=== PATIENT | male | born 1945 | race Caucasian/White ===

== ENCOUNTER 2021-10-20 12:19 | Inpatient (IN) | payer OTHER, MEDICARE ==
[~2021-10-20] VITALS: Ht 177.8 cm; Wt 117.0 kg
[2021-10-20 12:58] LABS: PCO2 Arterial 62.7 mmHg (35-45); pH Blood Arterial 7.34 (7.35-7.45)
[2021-10-20 13:17] LABS: BASOPHILS ABSOLUTE AUTO 0.03 K/mm3 (0.00-0.23); BASOPHILS PERCENT AUTO 0 % (0-2); EOSINOPHILS ABSOLUTE AUTO 0.04 K/mm3 (0.00-0.68); EOSINOPHILS PERCENT AUTO 0 % (0-6); Hematocrit 51.2 % (37.0-53.0); Hemoglobin 16.6 g/dL (13.5-17.5); IMMATURE GRAN ABSOLUTE AUTO 0.05 K/mm3 (0.00-0.10); IMMATURE GRAN PERCENT AUTO 1 % (0-1); LYMPHOCYTES ABSOLUTE AUTO 0.95 K/mm3 (0.84-5.20); LYMPHOCYTES PERCENT AUTO 9 % (21-46); MONOCYTES PERCENT AUTO 5 % (4-13); Mean Corpuscular HGB 31.4 pg (26.0-34.0); Mean Corpuscular HGB Conc 32.4 g/dL (31.5-36.5); Mean Corpuscular Volume 97 fL (80-100); Mean Platelet Volume 10.4 fL (9.1-12.4); NEUTROPHILS ABSOLUTE AUTO 9.06 K/mm3 (1.96-9.15); NEUTROPHILS PERCENT AUTO 85 % (41-73); Platelet Count 171 K/mm3 (150-400); RDW Coefficient Variation 14.9 % (11.7-14.2); RDW Standard Deviation 53.7 fL (35.1-46.3); Red Blood Cell Count 5.29 M/mm3 (4.30-5.90); White Blood Cell Count 10.63 K/mm3 (4.00-11.30)
[2021-10-20 13:39] LABS: Alanine Aminotransfer (ALT/SGP 18 U/L (12-78); Albumin, Blood 4.2 g/dL (3.4-5.0); Alk Phos 96 U/L (50-136); Anion Gap 4 mmol/L (6-16); Aspartate Aminotrans (AST/SGOT 29 U/L (12-37); Bilirubin, Total 0.8 mg/dL (0.1-1.0); Blood Urea Nitrogen 20 mg/dL (8-24); Bun/Creatinine Ratio 26.4 (12.0-20.0); CO2, Blood 33 mmol/L (21-32); Chloride, Blood 100 mmol/L (98-108); Creatinine, Blood 0.76 mg/dL (0.60-1.20); Globulin, Blood 4.1 g/dL (2.2-4.0); Glomerular Filtration Rate >60 (60-); Glucose, Blood 108 mg/dL (70-99); Potassium, Blood 4.4 mmol/L (3.5-5.5); Sodium, Blood 137 mmol/L (136-145); Total Protein, Blood 8.3 g/dL (6.4-8.2)
[2021-10-20 13:41] LABS: Ethanol (Alcohol), Blood, Med <3 mg/dL
[2021-10-20] MEDS ORDERED: METF500 PO (14:09)
[2021-10-20 14:11] LABS: Source, Urine Clean Catch
[2021-10-20] MEDS ORDERED: FURO40 PO (14:11)
[2021-10-20] MEDS ORDERED: SPIRIVA RESPIMAT4 G3 INH (14:11)
[2021-10-20] MEDS ORDERED: FLUT1DIS5 INH (14:12)
[2021-10-20] MEDS ORDERED: LOSA25 PO (14:13)
[2021-10-20] MEDS ORDERED: ROPINIROLE HCL PO (14:13)
[2021-10-20] MEDS ORDERED: LEVSOD150 PO (14:14)
[2021-10-20 14:15] LABS: Appearance, Urine Clear (Clear); Bilirubin, Urine Neg (Neg); Blood, Urine 2+ (Neg); Color, Urine Amber (P-Yellow); Glucose Qualitative, Urine Neg (Neg); Ketones, Urine Neg (Neg); Leukocyte Esterase, Urine 1+ (Neg); Nitrite, Urine Neg (Neg); Protein, Urine 2+ (Neg); Specific Gravity, Urine 1.025 (1.003-1.022); Urobilinogen, Urine 2+ (Normal)
[2021-10-20] MEDS ORDERED: SERT100 PO (14:15)
[2021-10-20] MEDS ORDERED: Crestor40 MG PO (14:16)
[2021-10-20 14:25] LABS: Bacteria Few /hpf; Squamous Epithelial Cells Few /hpf (Few)
[2021-10-20 14:26] LABS: Amorphous Light (0-Heavy); Amorphous Casts 0-2 /lpf (0); Calcium Oxalate Crystals Few /hpf
[2021-10-20 14:27] LABS: Hyaline Casts Rare /lpf (0-2)
[2021-10-20 14:28] LABS: U Amphetamine Screen Not Detected; U Barbituate Screen Not Detected; U Benzodiazapine Screen Not Detected; U Buprenorphine Screen Not Detected; U Cannabinoids Screen Not Detected; U Cocaine Screen Not Detected; U Methadone Screen Not Detected; U Methamphetamine Screen Not Detected; U Opiates Screen Not Detected; U Oxycodone Screen Not Detected; U Phencyclidine Screen Not Detected; U Propoxyphene Screen Not Detected
--- NOTE | 2021-10-20 23:06 | NUR ---
RESPIRATORY HAS PLACED THE PT ON CPAP FOR THE NIGHT BUT THE PT REFUSES TO USE IT BECAUSE HE STATES IT DOESN'T HELP HIM, HE WOULD PREFER WEARING JUST THE NASAL CANNULA OVERNIGHT. THIS RN PLACED THE NC BACK ON THE PATIENT AT 3L, PT O2 SAT IN THE LOW 90'S.
[2021-10-21 04:48] LABS: BASOPHILS ABSOLUTE AUTO 0.01 K/mm3 (0.00-0.23); BASOPHILS PERCENT AUTO 0 % (0-2); EOSINOPHILS PERCENT AUTO 0 % (0-6); Hematocrit 51.5 % (37.0-53.0); Hemoglobin 16.2 g/dL (13.5-17.5); IMMATURE GRAN ABSOLUTE AUTO 0.03 K/mm3 (0.00-0.10); IMMATURE GRAN PERCENT AUTO 0 % (0-1); LYMPHOCYTES PERCENT AUTO 6 % (21-46); MONOCYTES PERCENT AUTO 1 % (4-13); Mean Corpuscular HGB 31.1 pg (26.0-34.0); Mean Corpuscular HGB Conc 31.5 g/dL (31.5-36.5); Mean Corpuscular Volume 99 fL (80-100); Mean Platelet Volume 10.1 fL (9.1-12.4); NEUTROPHILS ABSOLUTE AUTO 10.35 K/mm3 (1.96-9.15); NEUTROPHILS PERCENT AUTO 92 % (41-73); Platelet Count 157 K/mm3 (150-400); RDW Coefficient Variation 14.8 % (11.7-14.2); RDW Standard Deviation 53.8 fL (35.1-46.3); Red Blood Cell Count 5.21 M/mm3 (4.30-5.90); White Blood Cell Count 11.19 K/mm3 (4.00-11.30)
[2021-10-21 05:01] LABS: Albumin, Blood 3.8 g/dL (3.4-5.0); Anion Gap 5 mmol/L (6-16); Blood Urea Nitrogen 20 mg/dL (8-24); Bun/Creatinine Ratio 25.8 (12.0-20.0); CO2, Blood 38 mmol/L (21-32); Calcium, Blood 8.7 mg/dL (8.5-10.1); Chloride, Blood 95 mmol/L (98-108); Creatinine, Blood 0.77 mg/dL (0.60-1.20); Glomerular Filtration Rate >60 (60-); Glucose, Blood 124 mg/dL (70-99); Magnesium, Blood 2.3 mg/dL (1.6-2.4); Phosphorus, Blood 4.7 mg/dL (2.5-4.9); Potassium, Blood 4.4 mmol/L (3.5-5.5); Sodium, Blood 138 mmol/L (136-145)
--- NOTE | 2021-10-21 05:17 | NUR ---
PT DID WELL OVERNIGHT ON THE NASAL CANNULA, PT DID NOT COMPLAIN OF ANY FURTHER SOB, PAIN, N/V. PT AWAKE THIS MORNING WATCHING TV. PT SATING >90. CALL LIGHT, PERSONAL BELONGINGS, AND URINAL ALL WITHIN PT REACH.
--- NOTE | 2021-10-21 17:29 | NUR ---
SHIFT SUMMARY THE PATIENT IS ALERT AND ORIENTED PLEASANT AND COOPERATIVE WITH CARE. THE PATIENT IS ABLE TO MAKE NEEDS KNOWN. THE PATIENT IS CURRENTLY ON 2LPM OF O2 VIA NASAL CANNULA. SATTING ABOVE 90% PATIENT HAS BEEN UP IN RECLINER FOR MEALS. PHYSICAL THERAPY WAS BY TO WORK WITH THE PATIENT. THE PATIENT TOLERATED IT WELL. NO INSULIN COVERAGE NEEDED. NO ACUTE CHANGES THIS SHIFT. VSS. THIS NURSE WILL CONTINUE TO CARE FOR THE PATIENT UNTIL SHIFT REPORT IS GIVEN TO ONCOMING NURSE.
[2021-10-21] MEDS ORDERED: VALA500 PO (19:30)
[2021-10-21] MEDS ORDERED: Mucus Relief400 MG PO (19:33)
[2021-10-21] MEDS ORDERED: TAMS.4ER PO (19:34)
[2021-10-21] MEDS ORDERED: ALBU90OI INH (19:34)
[2021-10-21] MEDS ORDERED: MYRBETRIQ25 MG PO (19:35)
[2021-10-21] MEDS ORDERED: LIDO700A20 TOP (19:36)
[2021-10-21] MEDS ORDERED: Carvedilol12.5 MG PO (19:37)
[2021-10-21] MEDS ORDERED: CARV25 PO (19:37)
[2021-10-22 04:53] LABS: BASOPHILS ABSOLUTE AUTO 0.03 K/mm3 (0.00-0.23); BASOPHILS PERCENT AUTO 0 % (0-2); EOSINOPHILS ABSOLUTE AUTO 0.01 K/mm3 (0.00-0.68); EOSINOPHILS PERCENT AUTO 0 % (0-6); Hematocrit 51.4 % (37.0-53.0); Hemoglobin 16.1 g/dL (13.5-17.5); IMMATURE GRAN ABSOLUTE AUTO 0.06 K/mm3 (0.00-0.10); IMMATURE GRAN PERCENT AUTO 1 % (0-1); LYMPHOCYTES ABSOLUTE AUTO 1.49 K/mm3 (0.84-5.20); LYMPHOCYTES PERCENT AUTO 13 % (21-46); MONOCYTES ABSOLUTE AUTO 0.72 K/mm3 (0.16-1.47); MONOCYTES PERCENT AUTO 6 % (4-13); Mean Corpuscular HGB Conc 31.3 g/dL (31.5-36.5); Mean Corpuscular Volume 99 fL (80-100); Mean Platelet Volume 10.3 fL (9.1-12.4); NEUTROPHILS ABSOLUTE AUTO 9.26 K/mm3 (1.96-9.15); NEUTROPHILS PERCENT AUTO 80 % (41-73); Platelet Count 149 K/mm3 (150-400); RDW Coefficient Variation 14.6 % (11.7-14.2); Red Blood Cell Count 5.19 M/mm3 (4.30-5.90); White Blood Cell Count 11.57 K/mm3 (4.00-11.30)
[2021-10-22 05:22] LABS: Albumin, Blood 3.6 g/dL (3.4-5.0); Anion Gap 7 mmol/L (6-16); Blood Urea Nitrogen 28 mg/dL (8-24); Bun/Creatinine Ratio 29.7 (12.0-20.0); CO2, Blood 34 mmol/L (21-32); Calcium, Blood 9.1 mg/dL (8.5-10.1); Chloride, Blood 97 mmol/L (98-108); Creatinine, Blood 0.94 mg/dL (0.60-1.20); Glomerular Filtration Rate >60 (60-); Glucose, Blood 108 mg/dL (70-99); Phosphorus, Blood 3.2 mg/dL (2.5-4.9); Potassium, Blood 3.8 mmol/L (3.5-5.5); Sodium, Blood 138 mmol/L (136-145)
--- NOTE | 2021-10-22 11:10 | NUR ---
Patient choice for home health referral: [facility] Home Health Liaison Rachel Ingram contacted by email/notified of discharge date: 10/22/[address] Peters.
[2021-10-22] MEDS ORDERED: DECADRON4 M1 PO (11:53)
[2021-10-22] MEDS ORDERED: LOSA50 PO (11:54)
[2021-10-22] MEDS ORDERED: IPRAT-ALBUT 0.5-3 ML INH (11:54)
--- NOTE | 2021-10-22 14:17 | NUR ---
PT DISCHARGED FROM THE UNIT. IV REMOVED. DISCHARGE INSTRUCTIONS REVIEWED. MEDICATIONS FAXED. TO [facility]
--- NOTE | 2021-10-23 07:51 | NUR ---
Per Dr. Peters discharge appropriate. Patient does not oppose discharge. Patient discharged home to residence. [facility] Home Health Liaison contacted to initiate Home Health services per discharge orders. Date of discharge: 10/22/2021 Date of admission: 10/21/2021 Provisional diagnosis at time of admission: COVID19 Final Diagnosis at time of discharge: COVID19 Transportation provided by: Family Location: [address] [place] [address] [employer] Ordered: None; patient uses Oxygen daily at night; [employer] provides supply Follow-ups needed: [facility] will contact patient to schedule hospital follow-up visit. Reinforced need to attend follow-up visit with telehealth option if needed (patient is COVID positive). Confirmed numbers: Patient [phone] Provider/PCP: Dr. Colt Taylor When: WITHIN 1 WEEK Specialty: N/A Comment: Explained to patient to contact PCP if any questions regarding medication management, social service needs, and if condition worsens go to Urgent Care/ER. No barriers to discharge. Patient has a strong support network.
--- NOTE | 2021-10-23 10:33 | NUR ---
Received referral from [facility] [employer] (Maddie Manzano) on 10/22/2021. Patient discharged 10/22/2021 with orders for home health and elected [facility]. Contacted patient at number provided on demographic sheet today- 10/23/2021 to further discuss the above. Patient is agreeable to the above. Discussed homebound status definition with patient. Patient verbalized understanding. Discussed what home health is vs what it is not (in home caregivers/housekeeping). Patient verbalized understanding. Discussed the next steps in the process of an initial assessment to determine frequency of visits. Again patient verbalized understanding. Offered a chance for patient to ask questions regarding the above of which there were none. Gathered all supporting documentation for referral (face sheet, face to face, med list, H&P, discharge summary, and most recent PT assessment) and sent to [facility] for review. No further interventions required. Rachel Ingram Referral Liaison
== END 2021-10-22 12:33 | disposition home health service (06) | DRG 177 ==
LOC: ER 12:19 → MEDS 12:20 → ENPENDDIS 10-22 11:42 → MEDS 10-22 12:33
PROVIDERS: Physician Assistant; ADMIT Family Medicine
PROC: 5A09357 Assistance with Respiratory Ventilation, Less than 24 Consecutive Hours, Continuous Positive Airway Pressure (ICD-10-PCS; principal; 2021-10-21)
PROC: 8E0ZXY6 Isolation (ICD-10-PCS; 2021-10-21)
PROC: 3E0DX3Z Introduction of Anti-inflammatory into Mouth and Pharynx, External Approach (ICD-10-PCS; 2021-10-21)
DX: U07.1 COVID-19 (principal); J96.21 Acute and chronic respiratory failure with hypoxia; N39.0 Urinary tract infection, site not specified; J44.9 Chronic obstructive pulmonary disease, unspecified; G47.33 Obstructive sleep apnea (adult) (pediatric); N40.0 Benign prostatic hyperplasia without lower urinary tract symptoms; B02.9 Zoster without complications; F32.A Depression, unspecified; F41.9 Anxiety disorder, unspecified; E66.9 Obesity, unspecified; Z68.38 Body mass index [BMI] 38.0-38.9, adult; E11.9 Type 2 diabetes mellitus without complications; Z79.84 Long term (current) use of oral hypoglycemic drugs; Z79.899 Other long term (current) drug therapy; Z88.2 Allergy status to sulfonamides; Z87.891 Personal history of nicotine dependence; Z28.21 Immunization not carried out because of patient refusal
CPT/HCPCS: 36415; 36600; 70450; 71045; 80053; 80069; 81001; 82803; 82947; 83735; 84145; 84484; 85025; 87086; 93005; 93010; 93306; 94660; 94762; 96372; 96376; 97116; 97161; 97165; 97535; 99285-25; A9270; G0378; G0480; J0696; J1650

== ENCOUNTER 2021-11-10 00:07 | Inpatient (IN) | payer OTHER ==
[~2021-11-10] VITALS: Ht 185.4 cm; Wt 114.4 kg
[~2021-11-10 00:07] MED LIST: ALBU90OI INH; CARV25 PO; Carvedilol12.5 MG PO; Crestor40 MG PO; DECADRON4 M1 PO; FLUT1DIS5 INH; FURO40 PO; IPRAT-ALBUT 0.5-3 ML INH; LEVSOD150 PO; LIDO700A20 TOP; LOSA25 PO; LOSA50 PO; METF500 PO; MYRBETRIQ25 MG PO; Mucus Relief400 MG PO; ROPINIROLE HCL PO; SERT100 PO; SPIRIVA RESPIMAT4 G3 INH; TAMS.4ER PO; VALA500 PO
[2021-11-10 00:35] LABS: Calcium, Ionized (POC) 1.12 mmol/L (1.10-1.46); Chloride (POC) 91 mmol/L (98-108); Glucose (ISTAT POC) 119 mg/dL (70-99); Potassium (POC) 4.5 mmol/L (3.5-5.5); Sodium (POC) 138 mmol/L (135-148); Total CO2 (POC) 40 mmol/L (21-32)
[2021-11-10 00:38] LABS: Hematocrit 46.4 % (37.0-53.0); Hemoglobin 14.3 g/dL (13.5-17.5); Mean Corpuscular HGB 31.7 pg (26.0-34.0); Mean Corpuscular HGB Conc 30.8 g/dL (31.5-36.5); Mean Corpuscular Volume 103 fL (80-100); Mean Platelet Volume 10.6 fL (9.1-12.4); Platelet Count 99 K/mm3 (150-400); RDW Coefficient Variation 14.3 % (11.7-14.2); RDW Standard Deviation 54.9 fL (35.1-46.3); Red Blood Cell Count 4.51 M/mm3 (4.30-5.90); White Blood Cell Count 27.79 K/mm3 (4.00-11.30)
[2021-11-10 00:39] LABS: PCO2 Arterial 76.9 mmHg (35-45); PO2 Arterial 305 mmHg (80-100); pH Blood Arterial 7.29 (7.35-7.45)
[2021-11-10 00:48] LABS: Alanine Aminotransfer (ALT/SGP 11 U/L (12-78); Albumin, Blood 2.6 g/dL (3.4-5.0); Albumin/Globulin Ratio 0.6 (0.8-1.8); Alk Phos 71 U/L (50-136); Anion Gap 3 mmol/L (6-16); Aspartate Aminotrans (AST/SGOT 11 U/L (12-37); Bilirubin, Total 0.9 mg/dL (0.1-1.0); Blood Urea Nitrogen 35 mg/dL (8-24); Bun/Creatinine Ratio 16.3 (12.0-20.0); CO2, Blood 39 mmol/L (21-32); Calcium, Blood 8.6 mg/dL (8.5-10.1); Chloride, Blood 97 mmol/L (98-108); Creatinine, Blood 2.15 mg/dL (0.60-1.20); Ethanol (Alcohol), Blood, Med <3 mg/dL; Glomerular Filtration Rate 30 (60-); Glucose, Blood 121 mg/dL (70-99); Potassium, Blood 4.5 mmol/L (3.5-5.5); Sodium, Blood 139 mmol/L (136-145); Total Protein, Blood 6.6 g/dL (6.4-8.2)
[2021-11-10 01:00] LABS: BAND PERCENT MAN 14 % (0-8); BASOPHILS PERCENT MAN 0 % (0-2); EOSINOPHILS PERCENT MAN 0 % (0-6); LYMPHOCYTES ABSOLUTE MAN 2.22 K/mm3 (0.84-5.20); LYMPHOCYTES PERCENT MAN 8 % (21-46); METAMYELOCYTE ABSOLUTE MAN 0.27 K/mm3 (0.00-0.00); METAMYELOCYTE PERCENT MAN 1 % (0-0); MONOCYTES ABSOLUTE MAN 1.66 K/mm3 (0.16-1.47); MONOCYTES PERCENT MAN 6 % (4-13); NEUTROPHILS ABSOLUTE MAN 23.62 K/mm3 (1.96-9.15); SEG NEUTROPHILS PERCENT MAN 71 % (41-73); TOTAL CELLS COUNTED 100
[2021-11-10 01:12] LABS: U Amphetamine Screen Not Detected; U Barbituate Screen Not Detected; U Benzodiazapine Screen Not Detected; U Buprenorphine Screen Not Detected; U Cannabinoids Screen Not Detected; U Cocaine Screen Not Detected; U Methadone Screen Not Detected; U Methamphetamine Screen Not Detected; U Opiates Screen Not Detected; U Oxycodone Screen Not Detected; U Phencyclidine Screen Not Detected; U Propoxyphene Screen Not Detected
[2021-11-10 01:33] LABS: Influenza A, PCR NEGATIVE (NEGATIVE); Influenza B, PCR NEGATIVE (NEGATIVE); Resp Syncytial Virus, PCR NEGATIVE (NEGATIVE)
[2021-11-10 01:52] LABS: SARS-Cov-2 (COVID-19) PCR, MMC POSITIVE (NEGATIVE)
[2021-11-10 03:18] LABS: Hemoglobin 13.6 g/dL (13.5-17.5); Mean Corpuscular HGB 31.9 pg (26.0-34.0); Mean Corpuscular HGB Conc 31.6 g/dL (31.5-36.5); Mean Corpuscular Volume 101 fL (80-100); Mean Platelet Volume 10.7 fL (9.1-12.4); Platelet Count 92 K/mm3 (150-400); RDW Coefficient Variation 14.4 % (11.7-14.2); RDW Standard Deviation 54.2 fL (35.1-46.3); Red Blood Cell Count 4.27 M/mm3 (4.30-5.90); White Blood Cell Count 22.58 K/mm3 (4.00-11.30)
[2021-11-10 03:30] LABS: Source, Urine Foley catheter
[2021-11-10 03:34] LABS: Blood, Urine 4+ (Neg); Glucose Qualitative, Urine Neg (Neg); Ketones, Urine 1+ (Neg); Leukocyte Esterase, Urine 3+ (Neg); Nitrite, Urine Pos (Neg); Protein, Urine 3+ (Neg); Urobilinogen, Urine 2+ (Normal)
[2021-11-10 03:35] LABS: Albumin, Blood 2.3 g/dL (3.4-5.0); Albumin/Globulin Ratio 0.6 (0.8-1.8); Bilirubin, Total 1.1 mg/dL (0.1-1.0); Bun/Creatinine Ratio 20.9 (12.0-20.0); Calcium, Blood 8.2 mg/dL (8.5-10.1); Creatinine, Blood 1.77 mg/dL (0.60-1.20); Globulin, Blood 3.7 g/dL (2.2-4.0); Potassium, Blood 3.9 mmol/L (3.5-5.5)
[2021-11-10 03:41] LABS: Appearance, Urine Hazy (Clear); Bilirubin, Urine 1+ (Neg); Color, Urine Amber (P-Yellow)
[2021-11-10 03:43] LABS: Amorphous Light (0-Heavy); Bacteria Mod /hpf; Red Blood Cells, Urine Rare /hpf (0-2); Squamous Epithelial Cells Few /hpf (Few)
--- NOTE | 2021-11-10 04:27 | NUR ---
ASSUMED PT CARE/END OF SHIFT SUMMARY PT ARRIVED FROM ED AT 0200. INTUBATED AND SEDATED. VENT SETTINGS AC/PC: 22/5; FIO2 45%, BACK UP RATE OF 18. PT SEDATED WITH VERSED THAT WAS TURNED OFF AND SWITCHED TO PROPOFOL, WHICH WAS STARTED AT 20MCG/KG/MIN. PT ABLE TO OPEN EYES, FOLLOW COMMANDS, AND NODS HEAD YES/NO TO QUESTIONS. MOVES ALL EXTREMITIES PURPOSEFULLY. PROPOFOL INCREASED TO 35 MCG/KG/MIN FOR COMFORT. LEVOPHED INITIATED AT 2MCG/MIN AND TITRATED ACCORDINGLY; SEE FLOWSHEET. NS AT 150MLS/HR. CENTRAL LINE TO RIGHT IJ; DRESSING CHANGED D/T PT'T COPIOUS ORAL SECRETIONS THAT LIFTED THE DRESSING. OG TUBE TO LIS WITH YELLOW/GREEN BILE NOTED TO CANISTER. TEMP WHITESIDE CATHETER IS PATENT AND DRAINING DARK, LISSETH COLORED URINE TO GRAVITY. SEE SHIFT SUMMARY FOR FURTHER DETAILS. WILL CONTINUE TO MONTIOR UNTIL REPORT IS HANDED OFF TO ONCOMING RN.
[2021-11-10 04:29] LABS: Cholesterol 73 mg/dL (50-200); Triglycerides 96 mg/dL (30-160)
[2021-11-10 05:01] LABS: BAND PERCENT MAN 15 % (0-8); BASOPHILS PERCENT MAN 0 % (0-2); EOSINOPHILS ABSOLUTE MAN 0.22 K/mm3 (0.00-0.68); EOSINOPHILS PERCENT MAN 1 % (0-6); LYMPHOCYTES ABSOLUTE MAN 1.12 K/mm3 (0.84-5.20); LYMPHOCYTES PERCENT MAN 5 % (21-46); MONOCYTES PERCENT MAN 4 % (4-13); NEUTROPHILS ABSOLUTE MAN 20.32 K/mm3 (1.96-9.15); SEG NEUTROPHILS PERCENT MAN 75 % (41-73); TOTAL CELLS COUNTED 100
[2021-11-10 05:58] LABS: PCO2 Arterial 42.1 mmHg (35-45); PO2 Arterial 58.7 mmHg (80-100)
--- NOTE | 2021-11-10 07:35 | NUR ---
RT changed vent settings to AC/VC 18/480/45/5 and sats 97%. Tolerated am meds.
--- NOTE | 2021-11-10 09:23 | NUR ---
No significant changes since last note. Vent and gtt seetings remain unchanged. Spouse called and gave her updates. Patient resting quetly.
--- NOTE | 2021-11-10 11:44 | NUR ---
Dr Nova has seen patient and no new orders. Vent setting changes AC/VC 16 480/45/5 and sats 95%. Have weaned Levophed to standby and systolics 120's. ECHO has been by and is done. Repositioned and oral care.
--- NOTE | 2021-11-10 13:30 | NUR ---
ASSUMED PT CARE. PT REMAINS INTUBATED AND SEDATED ON PROPOFOL @ 35 MCG/KG/MIN. PT RESPONDS TO NOXIOUS STIMULI BY COUGHING AND GRIMACING. NO SPONTANEOUS EYE OPENING OR MOVEMENT OF EXTREMITIES NOTED. ECG SHOWS SB TO SR WITH RATE 50-60'S. PT MAINTAINS MAP>65 WITH LEVOPHED ON STANDBY. LUNGS DIMINISHED THROUGH OUT. PT MAINTAINS SATS>90% ON VENT: AC/VC+ 16, 480,5, 45%. OGTF VPN INFUSING @ 20 CC/HR WITHOUT DIFFICULTY. WHITESIDE TO BSD WITH MODERATE AMOUNT OF DARK, YELLOW URINE OUTPUT. PT SKIN IS PALE, BUT WARM AND DRY. SCATTERED ECCHYMOTIC AREAS NOTED TO ARMS, BUT NO NOTED SKIN BREAKDOWN.PT SPOUSE AT BEDSIDE UPDATED TO CURRENT STATUS AND PLAN OF CARE.
--- NOTE | 2021-11-10 16:00 | NUR ---
PT RESTING QUIETLY ON VENT. NO NOTED NEURO CHANGES. CPOT 0. PT REMAINS AFEBRILE AND HEMODYNAMICALLY STABLE. MAINTAINS MAP 70'S-NO LEVOPHED. LUNGS DIMINISHED THROUGH OUT. MAINTAINS SATS>90% ON FIO2 45%. NO VENT CHANGES. ETT SUCTION PRODUCTIVE OF MODERATE AMOUNT OF THICK, SELF SECRETIONS. SPUTUM SPECIMEN WAS SENT EARLY THIS AM. PT TOLERATING OGTF WELL-30 CC RESIDUAL REFED. WHITESIDE CONTINUES TO DRAIN MODERATE AMOUNT OF DARK, YELLOW URINE TO BSD. STATIC CHANGES/BROWNISH DISCOLORATION NOTED TO BOTH LOWER EXTREMITIES. DP/PT PULSES FAINT. PT DOES NOT HAVE ANY HAIR ON HIS LEGS.
--- NOTE | 2021-11-10 18:28 | NUR ---
NO ACUTE CHANGES. INTAKE 2077 VS. 800 OUT THIS SHIFT. WILL REPORT TO ONCOMING SHIFT.
--- NOTE | 2021-11-10 20:14 | NUR ---
ASSUMED PT CARE AT 1900 FROM [facility]HAN CHAUHAN PT INTUBATED AND SEDATED. PROPOFOL AT 35MCG/KG/MIN, WHICH WAS TURNED DOWN TO 10MCG/KG/MIN FOR SEDATION VACATION. PT ABLE TO OPEN EYES, SQUEEZE HAND UPON COMMAND, MOVE ALL EXTREMITIES PURPOSEFULLY, WELL NOD HEAD YES/NO TO QUESTIONS. VENT SETTINGS: AC/VC 16, VT 480, PEEP 5, FIO2 45%, PT RESP RATE 16, SPO2 97%. PT NOTED TO BE SINUS BRADYCARDIA WITH RATE 50'S; BP'S STABLE, SEE FLOWSHEET. LEVOPHED REMAINS ON STANDBY. NS INFUSING AT 150ML/HR. CENTRAL LINE TO RIGHT IJ. VHP INFUSING AT GOAL OF 30ML/HR; MINIMAL RESIDUALS 20CC. TEMP WHITESIDE CATHETER IS PATENT AND DRAINING; CLEAR AND LISSETH. SEE SHIFT SUMMARY FOR FURTHER DETAILS
[2021-11-11 02:23] LABS: BASOPHILS ABSOLUTE AUTO 0.01 K/mm3 (0.00-0.23); BASOPHILS PERCENT AUTO 0 % (0-2); EOSINOPHILS PERCENT AUTO 0 % (0-6); Hematocrit 37.4 % (37.0-53.0); Hemoglobin 12.1 g/dL (13.5-17.5); IMMATURE GRAN ABSOLUTE AUTO 0.08 K/mm3 (0.00-0.10); IMMATURE GRAN PERCENT AUTO 1 % (0-1); LYMPHOCYTES ABSOLUTE AUTO 0.55 K/mm3 (0.84-5.20); LYMPHOCYTES PERCENT AUTO 5 % (21-46); MONOCYTES PERCENT AUTO 2 % (4-13); Mean Corpuscular HGB Conc 32.4 g/dL (31.5-36.5); Mean Corpuscular Volume 99 fL (80-100); Mean Platelet Volume 11.1 fL (9.1-12.4); NEUTROPHILS ABSOLUTE AUTO 10.41 K/mm3 (1.96-9.15); NEUTROPHILS PERCENT AUTO 93 % (41-73); Platelet Count 96 K/mm3 (150-400); RDW Coefficient Variation 14.5 % (11.7-14.2); RDW Standard Deviation 52.8 fL (35.1-46.3); Red Blood Cell Count 3.78 M/mm3 (4.30-5.90); White Blood Cell Count 11.25 K/mm3 (4.00-11.30)
[2021-11-11 02:38] LABS: Anion Gap 5 mmol/L (6-16); Blood Urea Nitrogen 38 mg/dL (8-24); Bun/Creatinine Ratio 37.6 (12.0-20.0); CO2, Blood 31 mmol/L (21-32); Calcium, Blood 8.2 mg/dL (8.5-10.1); Chloride, Blood 105 mmol/L (98-108); Creatinine, Blood 1.01 mg/dL (0.60-1.20); Glomerular Filtration Rate >60 (60-); Glucose, Blood 168 mg/dL (70-99); Magnesium, Blood 1.9 mg/dL (1.6-2.4); Phosphorus, Blood 2.2 mg/dL (2.5-4.9); Potassium, Blood 3.3 mmol/L (3.5-5.5); Sodium, Blood 141 mmol/L (136-145); Vancomycin, Trough 7.4 ug/mL (5.0-10.0)
--- NOTE | 2021-11-11 05:10 | NUR ---
END OF SHIFT SUMMARY VENT SETTINGS REMAIN UNCHANGED. ATTEMPTED AN SBT THIS MORNING; WITH PS 10/5 AND PROPOFOL OFF. PT UNABLE TO PULL TIDAL VOLUMES >200 WITH ELEVATED PEAK PRESSURE 40-50. PT PLACED BACK ON SEDATION WITH PROPOFOL AT 30MCG/KG/MIN AND VENT SETTINGS BACK TO ORIGINAL SETTINGS. NS COTNINUES AT 150MLS/HR. URINE OUTPUT OF 850CC THIS SHIFT. VHP AT GOAL OF 30ML/HR. LUNG SOUNDS ALTER FROM INSPIRATORY WHEEZES TO DIMINSIHED T/O. PT REMAINED SINUS LAURITA ALL NIGHT WITH HR 50'S. BP'S STABLE WITH MOST SBP'S 140 MMHG; SEE FLOWSHEET FOR TRENDS. WILL CONTINUE TO MONITOR UNTIL REPORT IS HANDED OFF TO ONCOMING RN.
--- NOTE | 2021-11-11 07:06 | NUR ---
ASSUMED CARE: PT INTUBATED AND SEDATED. VENT SETTINGS AC 16/480/45/5. PROPOFOL RUNNING FOR SEDATIONS AT 30MCG/KG. SIDUS LAURITA ON TELE AT 49BPM CURRENTLY. OG IN PLACE FOR TF. NO ACUTE NEEDS OR CONCERNS AT THIS TIME.
--- NOTE | 2021-11-11 11:34 | NUR ---
DR ANN WENT INTO ROOM TO ASSESS PT. PT'S AT BEDSIDE. DR ATTEMPTED TO PLACE PT ON SPONTANEOUS BUT HE WAS TOO SEDATED. PROPOFOL DECREASED TO 20MCG/KG. IVF DC'D. DOSE OF IV LASIX GIVEN PER ORDERS. DR CHANGED IV ABX. WITH DECREASED SEDATION, WILL EVALUATE AND DETERMINE IF PT IS ABLE TO TRY ANOTHER SPONTANEOUS TRIAL.
--- NOTE | 2021-11-11 12:34 | NUR ---
PT PLACED ON PRESSURE SUPPORT 7/5 AND 30% FIO2. VSS AT THIS TIME.
--- NOTE | 2021-11-11 12:42 | NUR ---
RT CHANGED PT TO PS 10/5 WITH 30% FIO2 DUE TO TVS AVERAGE [address] ANN OF 480. RT REMAINS AT BEDSIDE
--- NOTE | 2021-11-11 19:18 | NUR ---
SHIFT SUMMARY: PT INTUBATED AND SEDATED. TOLERATED PC FOR 3 HOURS BUT HAD TO BE SWITCHED BACK TO AC FOR LOW TVS. CURRENT SETTINGS AC 16/480/30. PROPOFOL AT 25MCG/KG. PT IS ABLE TO RESPOND TO YES/NO QUESTIONS AND FOLLOWS COMMANDS. OG IN PLACE FOR FEEDINGS. WHITESIDE IN PLACE AND DIURESING WELL WITH GOOD OUTPUT OF URINE. CAME TO SEE PT THIS SHIFT AND HAS BEEN UPDATED. NO ACUTE NEEDS OR CONCERNS.
[2021-11-12 04:56] LABS: BASOPHILS ABSOLUTE AUTO 0.01 K/mm3 (0.00-0.23); BASOPHILS PERCENT AUTO 0 % (0-2); EOSINOPHILS PERCENT AUTO 0 % (0-6); Hematocrit 40.7 % (37.0-53.0); Hemoglobin 13.3 g/dL (13.5-17.5); IMMATURE GRAN ABSOLUTE AUTO 0.05 K/mm3 (0.00-0.10); IMMATURE GRAN PERCENT AUTO 1 % (0-1); LYMPHOCYTES ABSOLUTE AUTO 0.88 K/mm3 (0.84-5.20); LYMPHOCYTES PERCENT AUTO 9 % (21-46); MONOCYTES ABSOLUTE AUTO 0.34 K/mm3 (0.16-1.47); MONOCYTES PERCENT AUTO 3 % (4-13); Mean Corpuscular HGB 31.8 pg (26.0-34.0); Mean Corpuscular HGB Conc 32.7 g/dL (31.5-36.5); Mean Corpuscular Volume 97 fL (80-100); Mean Platelet Volume 10.8 fL (9.1-12.4); NEUTROPHILS ABSOLUTE AUTO 9.01 K/mm3 (1.96-9.15); NEUTROPHILS PERCENT AUTO 88 % (41-73); Platelet Count 116 K/mm3 (150-400); RDW Coefficient Variation 14.5 % (11.7-14.2); RDW Standard Deviation 51.9 fL (35.1-46.3); Red Blood Cell Count 4.18 M/mm3 (4.30-5.90); White Blood Cell Count 10.29 K/mm3 (4.00-11.30)
[2021-11-12 05:11] LABS: Albumin, Blood 2.2 g/dL (3.4-5.0); Anion Gap 7 mmol/L (6-16); Blood Urea Nitrogen 36 mg/dL (8-24); Bun/Creatinine Ratio 43.2 (12.0-20.0); CO2, Blood 34 mmol/L (21-32); Calcium, Blood 8.4 mg/dL (8.5-10.1); Chloride, Blood 102 mmol/L (98-108); Creatinine, Blood 0.83 mg/dL (0.60-1.20); Glomerular Filtration Rate >60 (60-); Glucose, Blood 128 mg/dL (70-99); Phosphorus, Blood 3.5 mg/dL (2.5-4.9); Potassium, Blood 3.1 mmol/L (3.5-5.5); Sodium, Blood 143 mmol/L (136-145)
--- NOTE | 2021-11-12 06:09 | NUR ---
Shift Summary: Patient had a restful night. Lightly sedated on propofol, wakes easily, follows commands, attempts to communicate by writing. NSB; HR in the 50's. SBP elevated to the 160's- see flowsheet. Remains restful on the vent, sedation lightened in morning for spont. breathing trial. Thick dubon secretions; frequant lavage and suctioning, strong cough. OGT; TF at goal. Attempted BM on bedpan. Bailon in place. Bilateral soft wrist restrains in place for device protection while intubated and on COVID precautions for patient safety. updated via phone early in shift.
--- NOTE | 2021-11-12 07:13 | NUR ---
ASSUMED CARE: PT INTUBATED AND SEDATED. VENT SETTINGS AC 16/480/5/30 WITH 15MCG PROPOFOL RUNNING. RT AT BEDSIDE SWITCHING PT FOR SPONTANEOUS TRIAL. PT CURRENTLY NSR AT 61 ON TELE. NO ACUTE NEEDS AT THIS TIME.
--- NOTE | 2021-11-12 10:32 | NUR ---
PT CURRENTLY ON PS AT 10/5 WITH 30% FIO2. PULLING IN TVS IN 400S. RT ATTEMPTED TO REDUCE PRESSURE BUT PT SIGNALLED TO STAFF THAT HE WAS UNCOMFORTABLE AND TVS WERE [id number] TO 300S. DR MARIE CAME TO SEE PT AND REDUCED PRESSURE TO 7/5 AND PROPOFOL OFF. WILL DO ABG THIS AM TO VERIFY STATUS.
[2021-11-12 11:14] LABS: PCO2 Arterial 50.2 mmHg (35-45); PO2 Arterial 69.4 mmHg (80-100); pH Blood Arterial 7.45 (7.35-7.45)
--- NOTE | 2021-11-12 12:18 | NUR ---
PT EXTUBATED AT 1145. INCREASED DIAPHRAGM MOVEMENT NOTED AND GRUNTING HEARD. PT MAINTAINED SATS IN 90S. RT PLACED PT ON CPAP OF 11 AND 30% WHICH PT TOLD HER IS HOME SETTINGS. PT APPEARS MORE COMFORTABLE NOW.
--- NOTE | 2021-11-12 14:14 | NUR ---
PT REQUESTED BREAK FROM CPAP. TRANSITIONED TO NC AT 2L. PT'S O2 SATURATION HIGH 90S ON THIS. DENIES FURTHER NEEDS OR CONCERNS AT THIS TIME.
--- NOTE | 2021-11-12 14:41 | NUR ---
AFTER A FEW MINUTES PT APPEARED TO BE WORKING HARD TO BREATH AGAIN SO CPAP REPLACED. PT'S CAME TO VISIT AND IS SITTING AT BEDSIDE AT THIS TIME.
--- NOTE | 2021-11-12 16:56 | NUR ---
SPOKE WITH DR BROOKS REGARDING PT'S CONTINUED HYPERTENSION EVEN AFTER EXTUBATION. ORDER FOR PRN MEDS. WHILE ADMINISTERING PRN VASOTEC, PT STATED HE WAS FEELING JITTERY AND SHAKY. CHECKED CBG AND FOUND IT TO BE 77. DISCUSSED WITH DR BROOKS WHO IS REVIEWING CHART TO DETERMINE BEST COURSE OF ACTION FOR PT WHO IS NPO DUE TO BEING UNABLE TO TOLERATE BEING OFF CPAP FOR MORE THAN A FEW MINUTES
--- NOTE | 2021-11-12 18:33 | NUR ---
SHIFT SUMMARY: PT REMAINS ON CPAP OF 11 AND 30% FIO2. TOLERATING SHORT BREAKS OF A FEW MINUTES ONLY. REPEAT CBG OF 79 SO NO D5 TO BE GIVEN AT THIS TIME. TREATED FOR HTN X1 WITH VASOTEC PER ORDERS. PT'S CAME TO VISIT THIS SHIFT. NO ACUTE NEEDS OR CONCERNS
--- NOTE | 2021-11-12 19:00 | NUR ---
Pt report recieved, safety check completed. Pt AA&Ox4 lying in bed on CPAP. VSS. Assumed Pt care.
[2021-11-13 04:41] LABS: BASOPHILS ABSOLUTE AUTO 0.01 K/mm3 (0.00-0.23); BASOPHILS PERCENT AUTO 0 % (0-2); EOSINOPHILS ABSOLUTE AUTO 0.05 K/mm3 (0.00-0.68); EOSINOPHILS PERCENT AUTO 1 % (0-6); Hematocrit 44.8 % (37.0-53.0); Hemoglobin 13.8 g/dL (13.5-17.5); IMMATURE GRAN ABSOLUTE AUTO 0.09 K/mm3 (0.00-0.10); IMMATURE GRAN PERCENT AUTO 1 % (0-1); LYMPHOCYTES ABSOLUTE AUTO 0.82 K/mm3 (0.84-5.20); LYMPHOCYTES PERCENT AUTO 11 % (21-46); MONOCYTES ABSOLUTE AUTO 0.65 K/mm3 (0.16-1.47); MONOCYTES PERCENT AUTO 8 % (4-13); Mean Corpuscular HGB 31.4 pg (26.0-34.0); Mean Corpuscular HGB Conc 30.8 g/dL (31.5-36.5); Mean Platelet Volume 10.2 fL (9.1-12.4); NEUTROPHILS ABSOLUTE AUTO 6.16 K/mm3 (1.96-9.15); NEUTROPHILS PERCENT AUTO 79 % (41-73); Platelet Count 141 K/mm3 (150-400); RDW Coefficient Variation 14.5 % (11.7-14.2); RDW Standard Deviation 54.7 fL (35.1-46.3); Red Blood Cell Count 4.39 M/mm3 (4.30-5.90); White Blood Cell Count 7.78 K/mm3 (4.00-11.30)
[2021-11-13 04:42] LABS: Mean Corpuscular Volume 102 fL (80-100)
[2021-11-13 05:05] LABS: Anion Gap 5 mmol/L (6-16); Blood Urea Nitrogen 26 mg/dL (8-24); Bun/Creatinine Ratio 36.1 (12.0-20.0); CO2, Blood 35 mmol/L (21-32); Calcium, Blood 8.9 mg/dL (8.5-10.1); Chloride, Blood 104 mmol/L (98-108); Creatinine, Blood 0.72 mg/dL (0.60-1.20); Glomerular Filtration Rate >60 (60-); Glucose, Blood 85 mg/dL (70-99); Magnesium, Blood 2.1 mg/dL (1.6-2.4); Phosphorus, Blood 3.4 mg/dL (2.5-4.9); Sodium, Blood 144 mmol/L (136-145)
--- NOTE | 2021-11-13 07:14 | NUR ---
SHIFT SUMMERY: PT REMAINED AA&OX4 OVER NIGHT, PT ABLE TO HELP WITH TURNS, MAEW. BP TRENDING HIGH. AROUND MIDNIGHT, THE PT STATED THAT HE WAS "FEELING LIKE I'M HAVING A PANIC ATTACK." CONSUILTED AND ORDER RECEIVED FOR ATIVAN 0.5 MG PO. PT ABLE TO TAKE THE ATIVAN WITHOUT ISSUE AND WAS ABLE TO REST AND BP CAME DOWN BELOW 160. SUPLIMETAL ORDER FOR HYDRALAZINE 1OL MG Q6H ALSO RECIEVED. PT REFUSED CPAP AT HS, REFUSAL FORM COMPLETED. O2 VIA NC INCREASED TO 4 LPM AT REST. PT STATES THAT HE USES A 2-3 LPM BLEED IN WITH HIS HOME CPAP.
--- NOTE | 2021-11-13 08:01 | NUR ---
Received report from Duong OLMSTEAD. Patient is sleeping and arouses briefly to verbal stimuli before falling back to sleep. He is on 4L O@ via NC and is humuidified with sats 97%. He has CL to RIJ, dressing intact and site WNL's and is flushed and SL'd. He has 16Fr Temp acosta draining to gravity light brayan colored urine and temp of 98.3. He has rectal tube in place to manage liquid stool.
--- NOTE | 2021-11-13 09:30 | NUR ---
Patient has been resting in bed and awakens to verbal stimuli. He tolerated am med without difficulty. He has tolerated sips of water as well. RIJ remains SL. Maew but weak.
--- NOTE | 2021-11-13 11:04 | NUR ---
Spiritual Care - Advance Directive Request Pt. is in bed and awake. Pt. welcomes my visit. Upon beginning of my Advanced Directive presentation. Pt. verbalizes that he has a family trust with a living will and a DNR status. This porcelain slusher responded that our records list him as full code. Pt. verbalizes that they are new to the area, and have moved from [place]. This porcelain slusher communicate this information wi charge nurse and Palliative Care. Regardless, I walked him through the Advance Directive material "Just in Case."
--- NOTE | 2021-11-13 11:27 | NUR ---
Patient received full bath and is up in chair. All linen was changed during bed bath. Transferred call from in room. He has bee changed to PCU status. He is currently on 2L O2 via humidified NC and sats 96%.
--- NOTE | 2021-11-13 11:28 | NUR ---
VO obtained and entered for change in code status to DNR based on pt's expressed wishes to Test Inspection Engineer during his visit. Pt states he has completed an AD previously when living in another community. We do not have a copy on file.
--- NOTE | 2021-11-13 13:58 | NUR ---
Patient is working with OT currently. He remains up in chair on 2L O2 via humidified NC and sats 96%. in room at chair side. He is awaiting room in PCU.Bailon and rectal tube still draining to gravity. He tolerated pudding well. CBG was 63 and will re-check since pudding.
--- NOTE | 2021-11-13 15:50 | NUR ---
Gave report to Pratibha OLMSTEAD for PCU 18. Layed patient flat and pulled RIJ and continuesd to lay flat for another 10 minutes. Patient transferred from Chair to bed with walker and 1 assist with PT . He has acosta and rectal tube in place and are both patent. Gathered all belongings and took him over in ICU bed on RA and sats 89%, and remains in Sr 60's
--- NOTE | 2021-11-13 17:35 | NUR ---
Patient was transferred after getting 18/8 [facility] to [facility] for acess. RIJ site has clear op dressing C/D/I. He continued with acosta and rectal tube. When transferring to PCU 18 he transferred SBA to PCU bed, hooked to tele box and monitor and placed back on CPAP 11 with 4L bleed in.
--- NOTE | 2021-11-13 17:52 | NUR ---
PT TRANSFERED TO ROOM AT APPROX 1710; TRANSFERED FROM ICU. PT TRANSFERED FROM BED WITH 1P AND WALKER. A&Ox4; CALM AND COOPERATIVE WITH CARE. PT PLACED ON CPAP AT 11 WITH 4L BLEED IN; LS DIM T/O. SPO2 >90% ON RA. TELE SB-SR 59-61; BP ELEVATED, MEDCIATED WITH PRN. PT DENIES PAIN, CHEST PAIN, SOB, NAUSEA AND DIZZINESS AT THIS TIME. POWERGLIDE TO CORI; LEVAQUIN INFUSING. VSS. WILL CONTINUE TO MONITOR.
[2021-11-13] MEDS ORDERED: VALA500 PO (18:28)
[2021-11-13] MEDS ORDERED: ROSUVASTATIN CA40 MG PO (18:29)
[2021-11-13] MEDS ORDERED: Ropinirole HCl1 MG PO (18:29)
[2021-11-13] MEDS ORDERED: Carvedilol12.5 MG PO (18:29)
[2021-11-13] MEDS ORDERED: WIXELA 100-501 EAC1 INH (18:30)
--- NOTE | 2021-11-13 18:32 | NUR ---
UPDATED PT SPOUSE OF TRANSFER TO PCU AND UPDATED MEDICATION LIST.
[2021-11-14 05:05] LABS: BASOPHILS ABSOLUTE AUTO 0.02 K/mm3 (0.00-0.23); BASOPHILS PERCENT AUTO 0 % (0-2); EOSINOPHILS PERCENT AUTO 1 % (0-6); Hematocrit 47.7 % (37.0-53.0); Hemoglobin 14.6 g/dL (13.5-17.5); IMMATURE GRAN ABSOLUTE AUTO 0.16 K/mm3 (0.00-0.10); IMMATURE GRAN PERCENT AUTO 2 % (0-1); LYMPHOCYTES ABSOLUTE AUTO 0.76 K/mm3 (0.84-5.20); LYMPHOCYTES PERCENT AUTO 9 % (21-46); MONOCYTES ABSOLUTE AUTO 0.52 K/mm3 (0.16-1.47); MONOCYTES PERCENT AUTO 7 % (4-13); Mean Corpuscular HGB 31.4 pg (26.0-34.0); Mean Corpuscular HGB Conc 30.6 g/dL (31.5-36.5); Mean Corpuscular Volume 103 fL (80-100); Mean Platelet Volume 10.2 fL (9.1-12.4); NEUTROPHILS ABSOLUTE AUTO 6.49 K/mm3 (1.96-9.15); NEUTROPHILS PERCENT AUTO 81 % (41-73); Platelet Count 155 K/mm3 (150-400); RDW Coefficient Variation 14.4 % (11.7-14.2); RDW Standard Deviation 54.6 fL (35.1-46.3); Red Blood Cell Count 4.65 M/mm3 (4.30-5.90); White Blood Cell Count 8.05 K/mm3 (4.00-11.30)
[2021-11-14 05:25] LABS: Anion Gap 5 mmol/L (6-16); Blood Urea Nitrogen 19 mg/dL (8-24); Bun/Creatinine Ratio 26.2 (12.0-20.0); CO2, Blood 36 mmol/L (21-32); Calcium, Blood 9.2 mg/dL (8.5-10.1); Chloride, Blood 101 mmol/L (98-108); Creatinine, Blood 0.72 mg/dL (0.60-1.20); Glomerular Filtration Rate >60 (60-); Glucose, Blood 98 mg/dL (70-99); Potassium, Blood 4.2 mmol/L (3.5-5.5); Sodium, Blood 142 mmol/L (136-145)
--- NOTE | 2021-11-14 05:47 | NUR ---
shift summary pt a&ox4, pleasant. sp02>92% on humidified nc 4l. pt did wear cpap w' 4l bleedin at start of shift, but requested to keep nc on during noc. dry occasional cough. telemetry shows nsr, hr 60's. One epidsode of HTN, given hydralazine per emar w/ successful decreased of htn. pt passed bedside swallow this shift. Started on cardiac diet per orders. Swallowing pills, thin liquids and puddings with no problem. Pt has acosta catheter draining clear yellow urine to gravity. Pt has rectal tube draining brown liquid stool to gravity. rectal tube did not leak during shift. Call light in reach.
--- NOTE | 2021-11-14 07:45 | NUR ---
CARE ASSUMPTION THIS RN ASSUMED CARE FROM CELIA Hope RN AT 0700. PATIENT IS ALERT AND ORIENTED X4. PERRLA. NEURO IS INTACT.PATIENT REPORTS NO NUMBNESS OR TINGLING. PATIENT REPORTS NO CHEST PAIN/PRESSURE. PATIENT HAS DISTANT HEART SOUNDS, STRONG RADIAL AND PEDIS PULSES, AND CAP REFILL <3SECONDS. TELE SR 60S. PATIENT REPORTS NO SHORTNESS OF BREATH THIS MORNING AND IS ON 4L NC AND SPO2 >95%. LUNG SOUNDS DIM. PATIENT HAS SOME SCATTERED BRUSING THROUGHOUT AND A SCAB ON HIS BACK. SEE SHIFT ASSESSMENT FOR FULL DETAILS. PATIENT CBG THIS AM WAS 105, SO ROULA DID NOT RECEIVE ANY INSULIN THIS MORNING. PATIENT HAS A RECTAL TUBE IN PLACE, THAT HAS NO APPARENT LEAKS, AND IS DRIANING. PATIENT STATED WANTING TO HAVE IT OUT AND THAT HE IS ABLE TO TELL WHEN HE IS GOING. PATIENT HAS WHITESIDE CATH IN PLACE DRAINING WITH GRAVITY, YELLOW COLORATION. PATIENT HAS NO QUESTIONS OR CONCERNS THIS MORNING, BESIDES WANTING THE RECTAL TUBE OUT. THIS RN WILL CONTINUE TO PROVIDE THERPAUETIC COMMUNICATION, ACTIVE LISTENING, AND CARE, AND MONITOR.
--- NOTE | 2021-11-14 12:08 | NUR ---
REPORT TO STUMP BLOWER/SHIFT SUMMARY THIS RN GAVE REPORT TO SANDI Waters RN AT APROX 1203. WE DID BESIDE REPORT. PATIENT NEURO REMAINS INTACT AND NO CHANGES. VSS. PATIENT IS MED NO TELE STATUS. PATIENT RECTAL TUBE IS REMOVED. PATIENT ABLE TO COMMUNICATE WHEN HE HAS TO GO. NO CHANGES THIS SHIFT. CALL LIGHT WITHIN REACH, AT BEDSIDE, AND BED IN LOWEST POSITION.
--- NOTE | 2021-11-14 15:35 | NUR ---
Spiritual Care Visit. Pt. is sitting up in a chair and welcomes my visit. Re-establish rapport Pt. is pleasant and verbalizes his projected discharge to a rehab facility. Visit with pt. is interuppted by gun sealing machine operator, who asks pt. questions. PCU is prepping for labs and medication. Pt. verbalizes that he was wrong about asking to change his Status to DNR (yesterday when he was in ICU.) Apparently his clarified with staff, because Pt. has reverted to Full Code. Pt. verbalized his desire to have this systems tester return.
--- NOTE | 2021-11-14 18:48 | NUR ---
SHIFT SUMMARY THIS NURSE ASSUMED CARE OF PATIENT AT APPROX 1230. PT REMAINED ALERT AND ORIENTED X 4, WAS AT BEDSIDE THIS AFTERNOON. SP02 MAINTAINED >90% VIA 2L NC. NO CHEST PAIN REPORTED. TELE MONITORING IN PLACE, SR 60-70 WITH PVC'S PER REPORT, NOMAN ON MONITORS. OCCUPATIONAL THERAPY EVALUATED PT THIS AFTERNOON, PT HAS BEEN IN CHAIR SINCE AND DENIED WANTING TO BE AMBULATED BACK TO BED. RECTAL TUBE REMOVED DURING THIS SHIFT, NO EPISODES OF INCONTINENCE NOTED. NO ACUTE CHANGES NOTED DURING SHIFT. WILL CONTINUE TO MONITOR UNTIL REPORT GIVEN.
--- NOTE | 2021-11-15 05:48 | NUR ---
SHIFT SUMMARY NO ACUTE CHANGES THIS SHIFT. PT A&OX4. SP02>92% ON 4L NC. PT ATTEMPTED TO WEAR CPAP DURING NOC BUT WAS UNCOMFORTABLE. STATED IT WAS DRY AND MADE HIS NOSE BLEED. MEDICAL STATUS NO TELE. WHITESIDE CATHETER DRAINING LISSETH URINE TO GRAVITY. PT UP TO BSC W/ FWW SBA TO HAVE BM, SOFT, DARK BROWN, MEDIUM, X2. PT DENIES PAIN. PT C/O OF ANXIETY, MEDICATED PER EMAR X2 THIS SHIFT W/ ATIVAN. PT TALKED TO ON PHONE FOR ABOUT 15 MIN AT START OF SHIFT, TALKING ABOUT PLANS TO MAKE IT SAFE FOR HIM TO RETURN HOME. SLEPT OFF AND ON T/O NIGHT. CALL LIGHT IN REACH.
--- NOTE | 2021-11-15 18:13 | NUR ---
SHIFT SUMMARY: Pt remains A&O x4. VSS. Afebrile. No c/o pain. FC removed, DTV, Flomax started. BM x1. Tolerating current diet. Worked with PT- min assist utilizing gait belt. Frequent rounds to ensure pt safety. Pt encouraged to reposition q2hrs and offload pressure points to prevent pressure ulcers, pt verbalized understanding. Pt in no apparent distress at this time. Will continue to monitor until transfer of care to oncoming RN.
--- NOTE | 2021-11-16 04:54 | NUR ---
SHIFT SUMMARY NO ACUTE CHANGES THIS SHIFT. PT A&OX4. SP02>92% ON 2L NC. PT DID NOT WEAR CPAP DURING NOC. NO TELE, MEDICAL STATUS. VSS. PT STANDS AT BEDSIDE TO USE URINAL, WHITESIDE REMOVED DURING DAY SHIFT. PT AMBULATES WITH GAITBELT AND FWW TO BATHROOM TO HAVE BM. PT DID GET UP TO BATHROOM X1 WITHOUT USING CALL LIGHT, BED ALARM ON. EDUCATED PT ON IMPORTANCE OF CALLING TO BE SAFE AND PREVENT FALLS. PT WAS AWAKE IN CHAIR PART OF NIGHT. NOW IN BED SLEEPING. CALL LIGHT IN REACH.
--- NOTE | 2021-11-16 10:44 | NUR ---
CARE ASSUMPTION THIS RN ASSUMED CARE AT 0700 FROM CELIA Hope RN. PATIENT IS ALERT AND ORIENTED X4. NEURO INACT. PERRLA. LUNG SOUNDS DIM. NO TELE. VSS. SPO2> 95% ON 2L NC. STRONG RADIAL, FAINT PEDIS PULSES. SEE SHIFT ASSESSMENT FOR FULL DETAILS. PATIENT REPORTS NO CHEST PAIN OR PRESSURE, PAIN, OR SHORTNESS OF BREATH. PATIENT WAS COMPLAINING OF HEMORRHOID PAAIN AND RECEIVE SOME CREAM FOR HIS BOTOM PER EMAR. PATIENT IS A ONE PERSON ASSIST TO THE CHAIR AND BATHROOM. PATIENT WILL GET UP WITHOUT CALLING, SO BED ALARM IS ON AND FREQUENT REMINDERS TO CALL BEFORE GETTING UP. PATIENT WORKED WITH OCCUPATIONAL THERAPY THIS AM. PATIENT HAS NO CONCERNS AT THIS TIME AND IS AWARE OF THE PLAN OF CARE. THIS RN PROVIED THERAPUETIC COMMUNICATION AND ACTIVE LISTENING. THIS RN WILL CONTINUE TO MONITOR AND PROVIDE CARE. CALL LIGHT IS WITHIN REACH AND BED IN LOWEST POSITION.
[2021-11-16 12:31] LABS: Influenza A, PCR NEGATIVE (NEGATIVE); Influenza B, PCR NEGATIVE (NEGATIVE); Resp Syncytial Virus, PCR NEGATIVE (NEGATIVE); SARS-Cov-2 (COVID-19) PCR, MMC NEGATIVE (NEGATIVE)
--- NOTE | 2021-11-16 14:13 | NUR ---
REPORT TO [facility] NURSE THIS RN GAVE REPORT TO [facility] RN AT 1413. THIS RN INCLUDED THE PATIENT CODE STATUS, VITAL SIGNS, PAST MEDICAL HISTORY, DIET, ACTIVITY LEVEL, CBGS, THAT PATIENT IS A/OX4, VSS, LUNG SOUNDS DIM, VOIDS WITH NO ISSUES, LAST BM TODAY, AND MY SHIFT ASSESSMENT FINDINGS. THE PATIENTS IV HAS BEEN REMOVED. THIS RN HELPED GATHER THE PATIENT BELONGINGS, AND ALL ARE GATHERED IN BAGS AWAITING FOR RIDE TO ARRIVE TO GO TO [facility]. PATIENT HAS HAD NO ACUTE CHANGES THIS SHIFT. WILL CONTINUE TO MONITOR AND PROVIDE CARE. THIS RN WENT OVER DISCHARGE INSTRUCTIONS AND EDUCATION.
[2021-11-16] MEDS ORDERED: LEVSOD150 PO (14:29)
--- NOTE | 2021-11-16 15:05 | NUR ---
PATIENT LEFT PATIENT LEFT WITH THE EMS SERVICES TO [facility]. PATIENT HAD ALL BELONGINGS AND DISCHARGE EDUCATION. PATIENT WAS IN NO DISTRESS WHEN LEAVING. PATIENT LEFT VIA WHEELCHAIR.
--- NOTE | 2021-11-16 15:46 | NUR ---
Spiritual Care Visit. Prior to discharge. Pt. is sitting up on side of bed and welcomes my visit. Pt. is unsettled about the kind of care he will receive at [facility]. Listen empathetically and normalize the pt. experience. Pt. displays evidence of engagement and receptivity. Pastoral dormitory counselor given. Pt. displayed evidence of increased courage and resolve to get his health back. Prayed for Pt. Pt. verbalized gratitude for the several spiritual care visits. This carbon brushes assembler wished him well upon his discharge.
== END 2021-11-16 15:00 | DRG 871 ==
LOC: ER 00:07 → ICUW 01:08 → PCU 11-13 15:56
PROVIDERS: Emergency Medicine; Family Medicine; Internal Medicine; Internal Medicine Critical Care Medicine; ADMIT Internal Medicine
PROC: 0BH18EZ Insertion of Endotracheal Airway into Trachea, Via Natural or Artificial Opening Endoscopic (ICD-10-PCS; principal; 2021-11-10)
PROC: 5A1945Z Respiratory Ventilation, 24-96 Consecutive Hours (ICD-10-PCS; 2021-11-10)
PROC: 02HV33Z Insertion of Infusion Device into Superior Vena Cava, Percutaneous Approach (ICD-10-PCS; 2021-11-10)
PROC: 8E0ZXY6 Isolation (ICD-10-PCS; 2021-11-10)
PROC: 3E0333Z Introduction of Anti-inflammatory into Peripheral Vein, Percutaneous Approach (ICD-10-PCS; 2021-11-10)
PROC: 3E03329 Introduction of Other Anti-infective into Peripheral Vein, Percutaneous Approach (ICD-10-PCS; 2021-11-10)
PROC: 3E033XZ Introduction of Vasopressor into Peripheral Vein, Percutaneous Approach (ICD-10-PCS; 2021-11-10)
PROC: XW0DXM6 Introduction of Baricitinib into Mouth and Pharynx, External Approach, New Technology Group 6 (ICD-10-PCS; 2021-11-11)
PROC: 5A09357 Assistance with Respiratory Ventilation, Less than 24 Consecutive Hours, Continuous Positive Airway Pressure (ICD-10-PCS; 2021-11-12)
DX: A40.3 Sepsis due to Streptococcus pneumoniae (principal); J96.01 Acute respiratory failure with hypoxia; U07.1 COVID-19; J96.02 Acute respiratory failure with hypercapnia; J13 Pneumonia due to Streptococcus pneumoniae; R65.21 Severe sepsis with septic shock; J18.9 Pneumonia, unspecified organism; J44.0 Chronic obstructive pulmonary disease with (acute) lower respiratory infection; J44.1 Chronic obstructive pulmonary disease with (acute) exacerbation; N17.9 Acute kidney failure, unspecified; Z16.11 Resistance to penicillins; Z28.21 Immunization not carried out because of patient refusal; R19.7 Diarrhea, unspecified; E87.6 Hypokalemia; F32.A Depression, unspecified; N40.0 Benign prostatic hyperplasia without lower urinary tract symptoms; D69.6 Thrombocytopenia, unspecified; E03.9 Hypothyroidism, unspecified; G25.81 Restless legs syndrome; E78.5 Hyperlipidemia, unspecified; Y95 Nosocomial condition; F41.8 Other specified anxiety disorders; I10 Essential (primary) hypertension; G47.30 Sleep apnea, unspecified; Z87.891 Personal history of nicotine dependence; Z88.2 Allergy status to sulfonamides; Z79.84 Long term (current) use of oral hypoglycemic drugs; Z79.899 Other long term (current) drug therapy
CPT/HCPCS: 0241U; 31500; 36415; 36556; 36600; 51702; 70450; 71045; 71250; 72125; 74176; 80047; 80048; 80053; 80069; 80202; 81001; 82330; 82465; 82803; 82947; 83605; 83735; 83880; 84100; 84478; 84484; 85014; 85025; 87040; 87070; 87077; 87147; 87186; 87205; 93005; 93010; 93308; 93321; 94002; 94003; 94640; 94660; 94760; 94762; 96365; 96375; 97110; 97112; 97161; 97167; 97530; 97535; 99285-25; A9270; C1751; C9113; C9399; G0480; J0360; J0456; J0696; J1100; J1650; J1815; J1940; J1956; J2250; J2543; J2704; J3010; J3370; J7030; J7050; J7060

== ENCOUNTER → 2022-08-09 | Outpatient (CLI) | payer OTHER ==
[~2022-08-09] MED LIST changes: +ROSUVASTATIN CA40 MG PO; +Ropinirole HCl1 MG PO; +WIXELA 100-501 EAC1 INH
== END | disposition home or self-care (01) ==
LOC: LAB 14:58 → LAB SHORT 14:58
DX: R30.0 Dysuria (principal)
CPT/HCPCS: 87077; 87086; 87186

== ENCOUNTER 2024-01-04 11:12 | Emergency (ER) | payer OTHER ==
[~2024-01-04] VITALS: Ht 177.8 cm; Wt 127.0 kg
[2024-01-04 11:45] LABS: BASOPHILS ABSOLUTE AUTO 0.05 K/mm3 (0.00-0.23); BASOPHILS PERCENT AUTO 0 % (0-2); EOSINOPHILS ABSOLUTE AUTO 0.13 K/mm3 (0.00-0.68); EOSINOPHILS PERCENT AUTO 1 % (0-6); Hematocrit 41.6 % (37.0-53.0); Hemoglobin 13.1 g/dL (13.5-17.5); IMMATURE GRAN ABSOLUTE AUTO 0.06 K/mm3 (0.00-0.10); IMMATURE GRAN PERCENT AUTO 1 % (0-1); LYMPHOCYTES ABSOLUTE AUTO 0.99 K/mm3 (0.84-5.20); LYMPHOCYTES PERCENT AUTO 8 % (21-46); MONOCYTES ABSOLUTE AUTO 0.66 K/mm3 (0.16-1.47); MONOCYTES PERCENT AUTO 5 % (4-13); Mean Corpuscular HGB 29.7 pg (26.0-34.0); Mean Corpuscular HGB Conc 31.5 g/dL (31.5-36.5); Mean Corpuscular Volume 94 fL (80-100); Mean Platelet Volume 10.4 fL (9.1-12.4); NEUTROPHILS ABSOLUTE AUTO 10.58 K/mm3 (1.96-9.15); NEUTROPHILS PERCENT AUTO 85 % (41-73); Platelet Count 166 K/mm3 (150-400); RDW Coefficient Variation 14.8 % (11.7-14.2); RDW Standard Deviation 51.6 fL (35.1-46.3); Red Blood Cell Count 4.41 M/mm3 (4.30-5.90); White Blood Cell Count 12.47 K/mm3 (4.00-11.30)
[2024-01-04 12:04] LABS: Albumin, Blood 3.4 g/dL (3.4-5.0); Albumin/Globulin Ratio 0.9 (0.8-1.8); Bilirubin, Total 0.6 mg/dL (0.1-1.0); Bun/Creatinine Ratio 24.2 (12.0-20.0); Calcium, Blood 8.4 mg/dL (8.5-10.1); Creatinine, Blood 0.99 mg/dL (0.60-1.20); Globulin, Blood 3.9 g/dL (2.2-4.0); Potassium, Blood 4.1 mmol/L (3.5-5.5); Total Protein, Blood 7.3 g/dL (6.4-8.2)
[2024-01-04 12:18] LABS: Influenza A, PCR NEGATIVE (NEGATIVE); Influenza B, PCR NEGATIVE (NEGATIVE); Resp Syncytial Virus, PCR NEGATIVE (NEGATIVE); SARS-Cov-2 (COVID-19) PCR, MMC NEGATIVE (NEGATIVE)
[2024-01-04] MEDS ORDERED: Ipratropium/Albuterol SulF 2.5-0.5MG/3 ML Amp INH ONE (13:00)
[2024-01-04] MEDS ORDERED: PredniSONE 20 MG Tab PO ONE (13:05)
[2024-01-04] MEDS ORDERED: Albuterol 2.5 MG/3 ML VIAL INH SCH (13:05)
[2024-01-04] MEDS ORDERED: Doxycycline Hyclate 100 MG TAB PO ONE (13:05)
[2024-01-04] MEDS ORDERED: Azithromycin 250 MG Tab PO ONE (13:20)
[2024-01-04 13:30] VITALS: BP 115/58
[2024-01-04] MEDS ORDERED: AZIT250 PO (14:54)
[2024-01-04] MEDS ORDERED: PRED20 PO (14:54)
== END 2024-01-04 14:58 | disposition home or self-care (01) ==
LOC: ER 11:12
PROVIDERS: Student in an Organized Health Care Education/Training Program
DX: J44.1 Chronic obstructive pulmonary disease with (acute) exacerbation (principal); E11.9 Type 2 diabetes mellitus without complications; E03.9 Hypothyroidism, unspecified; N40.0 Benign prostatic hyperplasia without lower urinary tract symptoms; Z88.2 Allergy status to sulfonamides; Z79.899 Other long term (current) drug therapy; Z79.84 Long term (current) use of oral hypoglycemic drugs; Z79.890 Hormone replacement therapy; Z87.891 Personal history of nicotine dependence; Z11.52 Encounter for screening for COVID-19
CPT/HCPCS: 0241U; 71046; 80053; 84484; 85025; 94640; 94644; 94664; A9270; J7512